=== PATIENT | female | born 2000 | race African-American/Black ===

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

== ENCOUNTER 2021-01-02 18:10 | Emergency (ER) | payer MEDICAID ==
[~2021-01-02] VITALS: Ht 165.1 cm; Wt 56.0 kg
[2021-01-02 21:44] LABS: BASOPHILS % 0.6 % (0.0-2.0); EOSINOPHILS % 1.8 % (0.0-5.0); HEMATOCRIT. 40.5 % (36.0-48.0); HEMOGLOBIN. 13.9 g/dL (12.0-16.0); LYMPHOCYTES % 31.8 % (20.0-50.0); MEAN CORPUSCULAR HEMOGLOBIN 30.2 pg (28.0-32.0); MONOCYTES % 6.9 % (2.0-8.0); NEUTROPHILS % 58.9 % (40.0-76.0); PLATELET 254 x1000/uL (130-400); RED CELL DISTRIBUTION WIDTH 12.7 % (11.6-14.6)
[2021-01-02 21:46] LABS: CHLORIDE 107 mEq/L (98-107)
[2021-01-02 21:56] LABS: B-HCG QUANTITATIVE 2 mIU/mL (<3)
[2021-01-02 22:22] LABS: CLARITY URINE CLEAR (CLEAR); COLOR URINE YELLOW (YELLOW); KETONES URINE 2+ (NEGATIVE); LEUKOCYTE ESTERASE URINE 2+ (NEGATIVE); NITRITE URINE NEGATIVE (NEGATIVE); OCCULT BLOOD URINE TRACE (NEGATIVE); PH URINE 6.5 (4.5-8.0); PROTEIN URINE TRACE (NEGATIVE); SPECIFIC GRAVITY URINE 1.025 (1.005-1.030)
[2021-01-02] MEDS ORDERED: CEPH500C2 MT (22:29)
[2021-01-02 23:15] VITALS: BP 119/82
== END 2021-01-02 23:16 | disposition home or self-care (01) ==
LOC: ER 18:10
DX: O03.9 Complete or unspecified spontaneous abortion without complication (principal); O23.11 Infections of bladder in pregnancy, first trimester; N30.90 Cystitis, unspecified without hematuria; Z3A.08 8 weeks gestation of pregnancy; F41.9 Anxiety disorder, unspecified; F32.9 Major depressive disorder, single episode, unspecified; Z91.018 Allergy to other foods
CPT/HCPCS: 36415; 71045; 80053; 81003; 81025; 84702; 85025; 99284